=== PATIENT | male | born 1980 | race Caucasian/White ===

== ENCOUNTER → 2017-07-11 | Outpatient (CLI) | payer OTHER | LOC: RAD 09:34 | DX: M77.31 Calcaneal spur, right foot (principal); S82.52XK Displaced fracture of medial malleolus of left tibia, subsequent encounter for closed fracture with nonunion; X58.XXXD Exposure to other specified factors, subsequent encounter ==

== ENCOUNTER → 2023-04-20 | Outpatient (CLI) | payer BC | LOC: RAD 07:03 | DX: R16.0 Hepatomegaly, not elsewhere classified (principal) ==